=== PATIENT | female | born 1990 | race Caucasian/White ===

== ENCOUNTER 2021-12-02 08:25 | Day surgery (SDC) | payer MEDICARE, MEDICAID ==
[~2021-12-02] VITALS: Ht 167.6 cm; Wt 59.1 kg
[2021-12-02 08:40] VITALS: BP 181/117
[2021-12-02] MEDS ORDERED: fentaNYL/PF 50MCG/1 ML 2ML syringe ONE ×2 (08:44→08:45)
[2021-12-02] MEDS ORDERED: MIDAZolam 1 MG/ML 5ML VIAL ONE (08:45)
[2021-12-02] MEDS ORDERED: LIDOcaine Viscous 15ml cup ONE (08:46)
[2021-12-02] MEDS ORDERED: diphenhydrAMINE 50 mg/ml inj ONE (08:46)
[2021-12-02] MEDS ORDERED: DILT-94 PO (08:55)
[2021-12-02] MEDS ORDERED: INSU100V13 SQ (09:05)
[2021-12-02] MEDS ORDERED: LABE300T2 PO (09:05)
[2021-12-02] MEDS ORDERED: ERGO500093 PO (09:05)
[2021-12-02] MEDS ORDERED: CLON1PAT16 TOP (09:05)
[2021-12-02] MEDS ORDERED: PANT40TA54 PO (09:05)
[2021-12-02] MEDS ORDERED: INSU100I31 SQ (09:05)
[2021-12-02] MEDS ORDERED: METO5TAB98 PO (09:05)
[2021-12-02] MEDS ORDERED: GABA-530 PO (09:05)
[2021-12-02] MEDS ORDERED: SCOPOLAMINE (09:05)
[2021-12-02] MEDS ORDERED: FOSI40TA71 PO (09:05)
[2021-12-02] MEDS ORDERED: ASPI-1265 PO (09:05)
[2021-12-02] MEDS ORDERED: HYDR-4070 PO (09:07)
[2021-12-02 10:41] VITALS: BP 164/98
[2021-12-02 10:51] VITALS: BP 149/91
[2021-12-02 11:01] VITALS: BP 146/95
[2021-12-02 11:11] VITALS: BP 148/96
== END 2021-12-02 11:20 | disposition home or self-care (01) ==
LOC: GI LAB 08:25
PROVIDERS: ATTEND Internal Medicine Gastroenterology
DX: R11.0 Nausea (principal); K29.50 Unspecified chronic gastritis without bleeding; K21.00 Gastro-esophageal reflux disease with esophagitis, without bleeding; K22.70 Barrett's esophagus without dysplasia; E11.22 Type 2 diabetes mellitus with diabetic chronic kidney disease; N18.5 Chronic kidney disease, stage 5; Z88.0 Allergy status to penicillin; Z79.899 Other long term (current) drug therapy
CPT/HCPCS: 43239; 82948; 88305; 88312; 99153; G0500; J1200; J2250; J3010; J7030; Z7512; 99152; A4620